=== PATIENT | female | born 1995 | race Two or more races ===

== ENCOUNTER 2019-09-06 17:54 | Inpatient (IN) | payer OTHER ==
[~2019-09-06] VITALS: Ht 162.6 cm; Wt 95.3 kg
[2019-09-06] MEDS ORDERED: LABETALOL HCL100 MG PO (19:01)
[2019-09-06] MEDS ORDERED: PRENATAL CAPLE1 EAC1 PO (19:02)
[2019-09-07] MEDS ORDERED: DOXAZOSIN MESYLA4 MG PO (08:24)
[2019-09-07] MEDS ORDERED: HYDROCHLOROTHIA25 MG PO (08:24)
== END 2019-09-11 10:26 | disposition home or self-care (01) | DRG 818 ==
LOC: LDR 17:54 → OB/GYN 09-08 08:57
PROVIDERS: ADMIT Obstetrics & Gynecology; ATTEND Obstetrics & Gynecology
PROC: 0UVC7ZZ Restriction of Cervix, Via Natural or Artificial Opening (ICD-10-PCS; principal; 2019-09-06)
PROC: 4A1HXCZ Monitoring of Products of Conception, Cardiac Rate, External Approach (ICD-10-PCS; 2019-09-06)
DX: O34.32 Maternal care for cervical incompetence, second trimester (principal); O99.112 Other diseases of the blood and blood-forming organs and certain disorders involving the immune mechanism complicating pregnancy, second trimester; D69.6 Thrombocytopenia, unspecified; I10 Essential (primary) hypertension; Z3A.21 21 weeks gestation of pregnancy; Z03.818 Encounter for observation for suspected exposure to other biological agents ruled out

== ENCOUNTER 2019-10-28 10:14 | Inpatient (IN) | payer OTHER ==
[~2019-10-28] VITALS: Ht 160 cm; Wt 106.1 kg
[~2019-10-28 10:14] MED LIST: DOXAZOSIN MESYLA4 MG PO; HYDROCHLOROTHIA25 MG PO; LABETALOL HCL100 MG PO; PRENATAL CAPLE1 EAC1 PO
[2019-10-28] MEDS ORDERED: PRENATABS RX T1 EACH PO (11:28)
[2019-10-28] MEDS ORDERED: LABETALOL HCL100 MG PO (11:28)
[2019-12-01] MEDS ORDERED: HYDROXYZINE PAM25 MG PO (07:06)
[2019-12-01] MEDS ORDERED: NIFEDIPINE10 MG PO (07:06)
== END 2019-12-01 09:00 | disposition home or self-care (01) | DRG 831 ==
LOC: LDR 10:14 → OB/GYN 10:14 → LDR 10-29 18:59 → OB/GYN 10-30 13:18
PROVIDERS: ADMIT Obstetrics & Gynecology; ATTEND Obstetrics & Gynecology
PROC: 4A1HXCZ Monitoring of Products of Conception, Cardiac Rate, External Approach (ICD-10-PCS; 2019-10-28)
PROC: BY4FZZZ Ultrasonography of Third Trimester, Single Fetus (ICD-10-PCS; principal; 2019-11-15)
DX: O34.33 Maternal care for cervical incompetence, third trimester (principal); O60.03 Preterm labor without delivery, third trimester; O23.33 Infections of other parts of urinary tract in pregnancy, third trimester; B95.4 Other streptococcus as the cause of diseases classified elsewhere; O26.843 Uterine size-date discrepancy, third trimester; Z3A.29 29 weeks gestation of pregnancy; Z03.818 Encounter for observation for suspected exposure to other biological agents ruled out
CPT/HCPCS: 240